=== PATIENT | female | born 1940 | race Caucasian/White ===

== ENCOUNTER 2021-04-10 18:13 | Inpatient (IN) | payer OTHER ==
[~2021-04-10] VITALS: Ht 157.5 cm; Wt 82.9 kg
[2021-04-11] VITALS: BP 149/80
--- NOTE | 2021-04-11 01:41 | NUR ---
ADMISSION SUMMARY - NURSING PT WAS ADMITTED TO [facility] FROM [facility] ON 04/10/2021 AT 2233. PT WAS COOPERATIVE WITH ADMISSION PROCESS. PT'S NIECE IS GUARDIAN, RAMIREZ GUERRERO ([phone]). RN SPOKE LOS RAMIREZ ON THE PHONE AT 2303 AND GAVE VERBAL CONSENT FOT PT'S TREATMENT. RAMIREZ WILL FAX GUARDIANSHIP PAPERWORK ON 04/11/21. VITAL SIGNS WERE OBTAINED; WITHIN NORMAL LIMITS. SKIN ASSESSMENT PERFORMED; PT'S FEET ARE VERY DRY, LOWER RIGHT EXTREMITY IS ERYTHEMIC. PT STATED SHE HAS A HISTORY OF CELLULITIS IN THE LEFT LEG. PT STATED THE CELLULITIS IS RESOLVED BUT THE LEG REMAINS RED. PT STATED SHE IS INDEPENDENT WITH CARES AND AMBULATORY. PT WAS ORIENTED X4, ALERT WITH CONSTRICTED AFFECT. PT ENDORSED DEPRESSION AND ANXIETY. PT ENDORSED SI WITH THOUGHTS OF CUTTING HER THROAT WITH A KITCHEN KNIFE. PT STATED SHE IS ALL ALONE AND HAS NO SUPPORT. PT STATED SHE WOULD BE BETTER SO SHE CAN GO TO [facility]. PT STATED SHE DID NOT FEEL LIKE HURTING HERSELF ON THE UNIT AND WOULD COME TO STAFF IF SUICIDAL IDEATION BECAME WORSE. PT WAS PROVIDED WITH TOILETRIES, LINENS, WATER. BED IN LOW POSITION, PT PROVIDED WITH NON-SLIP SOCKS. PATIENT BELONGINGS SEARCHED.
[2021-04-11 05:03] LABS: CHOLESTEROL 155 mg/dL (<200); HDL CHOLESTEROL 48 mg/dL (>40); LDL CHOLESTEROL 92 mg/dL (<100); TC:HDL 3.2 Ratio (Not establshd); TRIGLYCERIDE 79 mg/dL (<150); VLDL 16 mg/dL (<40)
[2021-04-11 05:38] LABS: SERUM ASSESSMENT Clear
[2021-04-11 10:15] VITALS: BP 138/64
--- NOTE | 2021-04-11 10:29 | NUR ---
Nutrition: pt admitted to [facility] with MDD, Suicidal ideation. PMH: COVID, diverticulitis, PVD, GERD, fempop bypass. On lasix. Left leg redness, reported hx of cellulitis. No weight hx available. BMI 33.3, obesity class 1. Pt consumed 100% of breakfast this am on regular diet. Follow po trends but consider pt low nutrition risk at this time.
--- NOTE | 2021-04-11 12:38 | NUR ---
Alert and orientated X4. Interactive, looking out for and calling attention to peers. Denies SI/HI at this time but states she needs to be around people and is very lonely at home. Ambulates with regular, steady gait. Refuses to wear yellow socks at this time stating she wants to wear her own sandals and socks. Breath sounds clear. Reg HR auscultated. Color pink with brisk capillary refill and palpable peripheral pulses. Independent with voiding. Active bowel sounds over soft, rounded abdomen. Participating in groups. Sat in dining all morning with peers, currently eating lunch.
[2021-04-11 16:10] LABS: FOLIC ACID 11.8 ng/mL (8.6-58.9)
[2021-04-11 19:00] VITALS: BP 115/48
--- NOTE | 2021-04-12 05:07 | NUR ---
Assumed pt's care beginning of this pm shift. ALert and oriented. Pleasant and cooperative with care. Pt denied SI/HI this shift. Pt's friend Marielos called and spoke with pt this shift. Tooks meds whole without difficulties. Tylenol given for back pain. Pt sleeping well this shift. Did get up one time to request for tylenol and it wasn't time yet. Pt declined nursing waking her up to give to her, voicing she can ask for it when she wakes up. Nursing to continue to monitor.
[2021-04-12 09:00] VITALS: BP 146/50
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
--- NOTE | 2021-04-12 15:43 | NUR ---
Check-in with patient - Pt. expressed doing well. The patient requested an emery board to do her nails which appeared to be long and healthy. The pt. expressed wanting to learn ways to help others especially those involved in natural disasters. The pt. also expressed that how the increase in natural disasters is a sign of the end of the Earth.
--- NOTE | 2021-04-12 17:51 | NUR ---
Assumed pt care at 0700. Pt was alert and oriented x4. Assessments completed, vss. Lungs clear, active bowel sounds. Denies si/hi, c/o pain. Took meds whole with thin liquid, no difficulty noted. Ambulates with a steady gait. Calm and cooperative with care. Makes needs known to staff. Continent of bowel and bladder this shift. At this time pt is in the day room watching TV. will continue to monitor.
[2021-04-12 20:07] VITALS: BP 101/43
[2021-04-12 20:30] VITALS: BP 101/43
--- NOTE | 2021-04-13 01:40 | NUR ---
PATIENT SAT UP IN DINING ROOM MOST OF EVENING UNTIL SHE WENT TO BED AROUND 2200. SHE AMBULATES WITH SLOW STEADY GAIT. PATIENT WITH C/O MID BACK CHRONIC PAIN. TYLENOL 650MG PO GIVEN WITH HS MEDS WHICH SHE TOOK WHOLE WITH WATER. SHE STATES THE PAIN IS ONLY WHEN SHE STANDS AND WALKS. STATES PAIN GOES AWAY WHEN SHE SITS. PATIENT A/0X3-4. SHE HAD HS SNACK TONIGHT. SHE HAD LARGE BM THAT WAS FORMED. PATIENT HAD SOME DISCOMFORT IN PASSING IT D/T SIZE. NO BLOOD NOTED. PATIENT HAS BEEN CALM AND COOPERATIVE. SHE IS INDEPENDENT WITH CARES.SHE DENIES SI/HI/AVH TONIGHT. ROUTINE ROUNDS TO ASSESS SAFETY AND STATUS OF PATIENT. CONTINUING TO MONITOR.
[2021-04-13 06:35] VITALS: BP 136/64
--- NOTE | 2021-04-13 10:30 | NUR ---
PATIENT CARE ASSUMED AT 0700 - SLEEPING WHEN ARRIVING ON UNIT. AWOKE AND CAME TO BREAKFAST. ALERT AND ORIENTED X 3-4. AMBULATES WITH SLOW GAIT - MAKES NEEDS KNOWN READILY. STATED SLEPT WELL LAST EVENING. DOES SUFFER FROM CHRONIC MID AND LOWER BACK PAIN - STATES DEVELOPS WHEN ON FEET FOR ANY LENGTH OF TIME OR WHEN AMBULATING. CURRENTLY NO DISCOMFORT. PATIENT HEART RATE STRONG AND STEADY. COMPLIANT WITH MEDICATIONS - LUNGS CLEAR ON AUSCULTATION - NO BOWEL DISCOMFORT CURRENTLY. STATES AT LAST EVENING. PATIENT COMPLIANT WITH MASK PARTICIPATED IN GROUP ACTIVITY IN THE [facility]. WILL CONTINUE TO MONITOR FOR SAFETY AND ANY CONCERNS AND ADDRESS ACCORDINGLY.
[2021-04-13 19:54] VITALS: BP 120/53
[2021-04-13 20:15] VITALS: BP 120/53
--- NOTE | 2021-04-14 00:57 | NUR ---
PATIENT UP IN DINING ROOM THIS EVENING. SHE MADE CALLS TO A COUPLE OF FRIENDS WITH ASSISTANCE. PATIENT WATCHED FOOTBALL GAME AND THEN WENT OFF TO BED. SHE IS A/0X4. SHE HAS BEEN PLEASANT AND COOPERATIVE. SHE DENIES SI/HI/AVH. SHE IS EAGER TO GO HOME. SHE TOOK HER MEDS WHOLE WITH WATER AND HAD HS SNACK. SHE WAS GIVEN TYLENOL FOR CHRONIC BACK PAIN AT 2101. ROUTINE ROUNDS TO ASSESS STATUS AND SAFETY OF PATIENT. BED IN LOW POSITION. PATIENT INDEPENDENT WITH ADL'S AND TOILETING. PATIENT WAS COLD IN ROOM SO TEMP TURNED UP FOR COMFORT AND BLANKET ADDED. CONTINUING TO MONITOR.
--- NOTE | 2021-04-14 03:37 | NUR ---
PATIENT AWOKE AND CAME TO NURSE STATION AND SAID SHE EXPERIENCED PAIN IN HER RIGHT TOE AND WANTED HER BP CHECKED. BP WAS 137/68. SHE WAS WALKING OKAY ON IT. SHE STATES SHE HAS POOR CIRCULATION. TYLENOL 650MG PO GIVEN TO PATIENT AT 0315. PATIENT ATE APPLESAUCE TO COAT HER STOMACH BEFORE TAKING THE TYLENOL. PATIENT ATE AND WALKED BACK TO ROOM TO TRY AND SLEEP AGAIN.
[2021-04-14 10:05] VITALS: BP 139/65
--- NOTE | 2021-04-14 14:11 | NUR ---
Assumed pt care at 0700. Pt was alert and oriented x4. Assessments completed, vss. Denies si/hi, denies pain at this time. Took meds whole, no difficulty noted. AMbulates with a steady gait.Calm, cooperative, pleasant with care and assessments. Makes needs known to staff. Continent of bowel and bladder. AT this time pt is napping in her room. Will continue to monitor.
--- NOTE | 2021-04-14 17:09 | NUR ---
MEIR called the Pt's DPOA, Ludy Das, at [phone]. Ludy did not answer. MERI left a voice message requesting a call back.
[2021-04-14 20:24] VITALS: BP 138/57
--- NOTE | 2021-04-14 22:28 | NUR ---
Assumed pt's care this pm shift. Alert and oriented x4. Pt was in the dayroom at time of assessment. Pleasant and cooperative with care. Denies SI/HI, anxiety and/or depression. Pt took meds whole with no issue. Pt voiced she's a "night owl" at home and sleep around 3-4am and get up in the late mornings. Nursing encouraged pt on getting good night sleep, so as not to interfere to daily care. Pt also voiced that she would rather eat breakfast and dinner like she did today, rather than eating breakfast lunch and dinner. Pt voiced her stomach feels 100% better and not heavy. Pt also voiced she's 50lb overweight, which hurts her back and feet. Nursing to inform day RN of pt's choices. Nursing also suggested to pt to maybe to eat something light for lunch. Pt continues to sit in dayroom at this time. Nursing to continue to monitor.
--- NOTE | 2021-04-15 05:56 | NUR ---
Pt slept little this shift. Another tylenol given this shift per pt's request. Nursing to continue to monitor.
[2021-04-15 09:10] VITALS: BP 174/64
--- NOTE | 2021-04-15 12:09 | NUR ---
Assumed pt care at 0700. pt was alert and oriented x4. Assessments completed, vss. Denies si/hi, Denies pain at this time. Took meds whole with thin liquid, no difficulty noted. Ambulates with a steady gait. Makes need known to staff. continent of bowel and bladder. Ate breakfast and lunch. Calm, pleasant and cooperative with care. Pt stated, she was worried about life after discharge from hospital. At this time pt is eating lunch and socializing with another pt. WIll continue to monitor pt.
--- NOTE | 2021-04-15 17:27 | NUR ---
MERI and Dr. Castañeda spoke with the Pt's DPOA, Ludy Das. Pt's treatment and medications were discussed. Pt is not in agreement to outpt psychiatry or other mental health services. Pt has expressed and interest in a senior citizens day program. Ludy stated she can get they Pt into a program, hoever Pt often times refused to leave her home. Ludy confirmed the Pt has home health services [facility]. Pt has also has a nurse that comes in and assist with her medications. Ludy also stated she spoke with the Pt about assisted living. MERI and Dr. Castañeda also had conversations with the Pt concerning a higher level of care. Pt was not in agreement at this time. Discharge was discussed. Pt will discharge home on 04/17/2021 @ 1000 via [facility] transportation.
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
[2021-04-15 19:05] VITALS: BP 125/55
--- NOTE | 2021-04-16 02:20 | NUR ---
PATIENT HAS BEEN CALM AND COOPERATIVE, LUNGS CLEAR, BOWEL SOUNDS HEARLD IN ALL QUADRANTS. PATIENT IS ALERT AND ORIENTED X 4. PATIENT DENIES DEPRESSION, ANXIETY, SI AND HI. PATIENT GIVEN TYLENOL WITH NIGHT MEDS FOR BACK PAIN AND AGAIN AT 0215 FOR BACK PAIN. PATIENT HAS SLEPT WELL THROUGHOUT THE NIGHT.
[2021-04-16 09:07] VITALS: BP 125/90
--- NOTE | 2021-04-16 15:14 | NUR ---
HAS BEEN REPORTING BACK PAIN RATED A 6 ON 1-10 SCALE AT [facility]OX 1400 [address] G NURSING ASSESSMENT-TYLENOL 2 TABS GIVEN PO PRN FOR ABOVE NOTED WITH REPORTED GOOD RESULTS-HAS BEEN SOCIAL WITH FEMALE [id number] RANGE AFFECT- STATES FEELS READY FOR DC TOMORROW.
--- NOTE | 2021-04-16 17:01 | NUR ---
SW met with the Pt. Pt continues to deny SI/HI. SW talked to Pt about discharge. SW talked to Pt about outpt mental health services. Pt stated she will not participate in any mental health services. Pt talked about getting involved in a local program for older adults. Pt had not other questions or concerns at this time.
[2021-04-16 19:37] VITALS: BP 124/49
--- NOTE | 2021-04-17 04:22 | NUR ---
PATIENT DENIES ALL PSYCH AND S [id number] ABOUT DISCHARGE. LUNGS CLEAR, HEART STEADY AND REGULAR, BOWEL SOUNDS HEARD IN ALL FOUR QUADRANTS WITH LAST BM 04/16. PATIENT IS ALERT AND ORIENTED X 4 AND MAKES HER NEEDS KNOWN. TYLENOL GIVEN TWICE THIS, ONCE WITH hs MEDS AND AT 0230 FOR CHRONIC LOWER BACK PAIN.
[2021-04-17] MEDS ORDERED: CELEBREX 200 M200 M1 PO (08:57)
[2021-04-17] MEDS ORDERED: BAYER CHEWABLE81 MG PO (08:57)
[2021-04-17] MEDS ORDERED: NEURONTIN 300M300 M2 PO (08:58)
[2021-04-17] MEDS ORDERED: LASIX 20 MG TAB20 MG PO (08:58)
[2021-04-17] MEDS ORDERED: COLACE 100 MG100 MG PO (08:59)
[2021-04-17] MEDS ORDERED: CARAFATE 1 GM TA1 G1 PO (08:59)
[2021-04-17] MEDS ORDERED: FLONASE 0.05%50 MCG NASAL (08:59)
[2021-04-17] MEDS ORDERED: PROTONIX40 M4 PO (09:02)
[2021-04-17] MEDS ORDERED: VITAMIN D325 MC2 PO (09:03)
[2021-04-17 09:19] VITALS: BP 141/50
--- NOTE | 2021-04-17 12:42 | NUR ---
PATIENT CARE ASSUMED AT 0700, PATIENT ALERT AND ORIENTED X4, CALM AND COOPERATIVE WITH CARE, TOOK HER MEDICATION WHOLE, ACTIVE BOWEL SOUND, BREATH SOUND CLEAR, SKIN INTACT, REG HR AUSCUTATED, COLOR PINK WITH BRISK CAPILLARY REFILL, PATIENT DENIES SI/HI, PATIENT DISCHARGED AT 1230 TO HER HOME.
--- NOTE | 2021-04-18 20:08 | D ---
[facility] [place] [address] DISCHARGE SUMMARY Name: MANOJ RANDALL Room #: 524B-B [facility] IN M.R.#: [id number] Admission: 04/10/21 Attend Phys: William Bliss DO Discharge: 04/17/21 Date of : 44 Report #: [id number] THIS REPORT FOR: cc: FAM - Family physician unknown FAM - Family physician unknown William Bliss DO ~ DATE OF SERVICE: 04/17/2021 INPATIENT PSYCHIATRIC DISCHARGE SUMMARY ATTENDING PSYCHIATRIST: William Bliss D.O. WHIPPED TOPPING FINISHER: Tanner Hernandez M.D. DISCHARGE DIAGNOSES: Unspecified depression, improved also borderline intellectual functioning, suspected. MEDICAL COMORBIDITIES: Include mild obesity with a BMI of 33.4, hypertension, lower extremity edema, peripheral vascular disease, status post bilateral stent, right femoral popliteal graft, history of COVID-19 pneumonitis, history of diverticulitis, history of clostridium difficile infection, degenerative joint disease, history of lymphoma. The patient will be discharged back to her independent living apartment into a [place] of [place], [place]. The patient is on regular diet. Activity level as tolerated. No alcohol, no illicit drugs. The patient has declined psychiatric followup. She should see her primary care physician in 1 week. DISCHARGE MEDICATIONS: Aspirin 81 mg oral daily for heart protection and stent protection; Celebrex 200 mg oral daily for arthritis; gabapentin 300 mg oral 3 times a day for pain and anxiety, mood stability; Lasix 20 mg oral daily for lower extremity edema; Flonase nasal spray 50 mcg spray 2 sprays each nostril daily; docusate 100 mg oral twice daily for bowel motility; Flonase was for allergies; sucralfate 1 g oral twice daily, seven more day course given, then reevaluate by outside physician for gastritis, GERD; pantoprazole 40 mg oral daily for GERD; vitamin D3 1000 international units oral daily. LABORATORY DATA: Significant laboratories this admission include chemistries, potassium 4.2. A1c was 6.0. Triglycerides 79, cholesterol 155, LDL 92. B12 of 298, folate 11.8. The patient is oriented x 4. REASON FOR ADMISSION: Back on or so March, a 80-year-old obese female sent out to us from [facility] for reported suicidal ideation. The patient reported that she had had a panic attack and by the time I saw her here at [facility], she was not suicidal. The [facility] [address] [place] [address] DISCHARGE SUMMARY Name: MANOJ RANDALL Room #: 524B-B [facility] IN [facility].#: [id number] Admission: 04/10/21 Attend Phys: William Bliss, Discharge: 04/17/21 Date of : 44 Report #: [id number] patient gave us extensive history regarding her experiences growing up and as a young adult, both were highly traumatic. She had one child from a gentleman of a different race who is now . The patient's DPOA was not initially known, but turns out, it is the spouse of a relative of hers in any event. HOSPITAL COURSE: The patient was admitted to Geriatric Psychiatry Unit. She was initially on 100 mg t.i.d. of gabapentin that was increased to 200 t.i.d., then to 300 t.i.d. She participated in activities on the [facility]. I did call her DPOA with social worker aide. The patient is stubborn. She has refused counseling and psychiatric care. She would benefit from assisted living. We discussed this with her. She declined. On the day of discharge, she was not suicidal or homicidal. PHYSICAL EXAMINATION: VITAL SIGNS: On the day of discharge, temperature 36.5, pulse 94, respirations 70, BP 141/58, O2 sat 95%. MUSCULOSKELETAL: Normal gait and station. MENTAL STATUS EXAMINATION: This is a well-developed, obese female appearing stated age. Attention and concentration fair. Speech slightly slow, this is baseline. Thought process: Linear and goal directed. Thought content: Focused on the present. Denied suicidal or homicidal ideations. Denied auditory or visual type hallucinations. Insight and judgment were limited. Fund of knowledge below average. Prognosis for this patient is guarded given her being isolated in [place], [place], her declining of regular psychotherapy. <ELECTRONICALLY SIGNED> By: William Bliss DO 04/18/212007 [id number] William Bliss DO /nt
== END 2021-04-17 12:30 | disposition home or self-care (01) | DRG 885 ==
LOC: SBH 18:13
PROVIDERS: ADMIT Psychiatry & Neurology Psychiatry; ATTEND Psychiatry & Neurology Psychiatry
DX: F33.2 Major depressive disorder, recurrent severe without psychotic features (principal); I11.0 Hypertensive heart disease with heart failure; K21.9 Gastro-esophageal reflux disease without esophagitis; I73.9 Peripheral vascular disease, unspecified; I50.9 Heart failure, unspecified; M19.90 Unspecified osteoarthritis, unspecified site; R41.83 Borderline intellectual functioning; F41.9 Anxiety disorder, unspecified; Z86.16 Personal history of COVID-19; Z87.891 Personal history of nicotine dependence; Z82.49 Family history of ischemic heart disease and other diseases of the circulatory system; Z85.72 Personal history of non-Hodgkin lymphomas; Z88.1 Allergy status to other antibiotic agents; Z90.710 Acquired absence of both cervix and uterus; Z98.49 Cataract extraction status, unspecified eye; Z95.820 Peripheral vascular angioplasty status with implants and grafts; Z87.01 Personal history of pneumonia (recurrent); Z79.82 Long term (current) use of aspirin; Z79.899 Other long term (current) drug therapy
CPT/HCPCS: 10880